=== PATIENT | male | born 1975 | race Two or more races ===

== ENCOUNTER 2020-12-10 18:00 | Emergency (ER) | payer OTHER ==
[~2020-12-10] VITALS: Ht 165.1 cm; Wt 87.3 kg
[2020-12-10] MEDS ORDERED: acetaminophen 325mg tablet PO ONE (19:10)
[2020-12-10 20:47] VITALS: BP 110/73
== END 2020-12-10 20:48 | disposition home or self-care (01) ==
LOC: ER 18:02 → EDBD 18:02 → ER 20:48
DX: J06.9 Acute upper respiratory infection, unspecified (principal); E11.65 Type 2 diabetes mellitus with hyperglycemia; Z20.822 Contact with and (suspected) exposure to COVID-19; E78.00 Pure hypercholesterolemia, unspecified
CPT/HCPCS: 36415; 71045; 99284; U0003; U0005